=== PATIENT | female | born 1955 | race Caucasian/White ===

== ENCOUNTER 2023-09-09 08:23 | Emergency (ER) | payer MEDICARE, SELFPAY ==
[2023-09-09 08:38] VITALS: BP 135/73; PULSE 68; RESP 16; TEMP 36.8; O2SAT 99; BMI 28.0
--- NOTE | 2023-09-09 09:00 | ED.NECK ---
HPI - Neck Pain/Injury General Chief Complaint: Neck Pain/Injury Stated Complaint: Neck Pain S/P Injury 09/07/23 Time Seen by Provider: 09/09/23 08:43 History of Present Illness HPI Narrative: Patient is a 68-year-old female presents today with having neck pain on the left side. There is no fever no chills. There is no focal weakness. Pain is worse with turning her head to the left. There is less pain on turning her head to the right. No pain on moving her head up and down. There was no weakness on with her head up and down. Patient is from home. No bowel urinary incontinence no difficulty ambulating. Related Data Previous Rx's Medication Instructions Recorded cyclobenzaprine 10 mg tablet 10 mg PO TID PRN pain #14 tabs 09/09/23 ibuprofen 400 mg tablet 400 mg PO Q6H PRN pain #20 tabs 09/09/23 Allergies Allergy/AdvReac Type Severity Reaction Status Date / Time vagisil Allergy Unknown rash Uncoded 08/20/18 00:00 Review of Systems Review of Systems: Positive neck pain Yes all other systems are reviewed and are negative [facility] Past Medical History Attestation statement: The following information was validated with the patient. Physical Exam Vital Signs: Vital Signs: Last Vital Signs Temp 98.2 F 09/09/23 08:38 Pulse 68 09/09/23 08:38 Resp 16 09/09/23 08:38 BP 135/73 09/09/23 08:38 Pulse Ox 99 09/09/23 08:38 O2 Del Method Room Air 09/09/23 08:38 BMI result Body Mass Index 28.0 Appearance: Alert. Oriented X3. No acute distress. Eyes: Pupils equal, round and reactive to light. ENT: Pharynx normal. Neck: Normal inspection. Neck supple. No lymph nodes noted. No crepitus. There is positive pain to the left trapezius muscle on palpation. Pain on movement of the neck to the left. Minimal pain on movement of the neck to the right. Movement up and down without any difficulty. CVS: Normal heart rate and rhythm. Pulses normal. Normal S1 and S2 Respiratory: No respiratory distress. Breath sounds normal. No Wheezing. No rales Abdomen: Soft and nontender. No rigidity. No distention. good BS x4 Skin: Skin warm and dry. Normal skin color. Normal skin turgor. Extremities: No lower extremity edema. Neurovascular intact to all extremities. No Lacerations. No Rash. Good strength in bilateral upper extremity. No pain on movement of the arms. Sensation intact pulses intact Neuro: Oriented X 3. No motor deficit. No sensory deficit. Moving all extermities. No slurred speech Medical Decision Making Medical Decision Making MDM Narrative: No evidence for meningitis. Patient's has no focal weakness to suggest cord compression. Neurologically intact. Pain fairly sudden in onset worse with movement to a certain direction. Will start patient on muscle relaxant and also NSAIDs. Patient stated her kidney function is normal. Will discharge patient home currently in stable condition. Differential Diagnosis Toward a callus, fracture, cord compression Admission/Observation Consideration of admission/observation: Escalation of care including admission/observation considered Seems well appearing neurologically intact no need for admission Independent Historian Clinical information obtained from an independent historian. History obtained from or confirmed by: Spouse Prescription Management I considered prescription management with: Pain Medication Muscle relaxant Discharge Plan Discharge Clinical Impression: Torticollis Patient Disposition: Home, Self-Care Instructions: Spasmodic Torticollis (ED) Prescriptions: New cyclobenzaprine 10 mg tablet 10 mg PO TID PRN (Reason: pain) Qty: 14 0RF ibuprofen 400 mg tablet 400 mg PO Q6H PRN (Reason: pain) Qty: 20 0RF Referrals: Jose Christiansen MD [Primary Care Provider] - 09/11/23
== END 2023-09-09 10:11 | disposition home or self-care (01) ==
PROVIDERS: Emergency Provider Emergency Medicine Emergency Medical Services; PCP Internal Medicine
DX: M43.6 Torticollis (principal)
CPT/HCPCS: 99283; 99284

== ENCOUNTER 2024-02-10 08:19 | Outpatient (AMB) | payer MEDICARE, SELFPAY ==
[2024-02-10 08:32] VITALS: BP 140/80; PULSE 89; TEMP 36.4; O2SAT 97; BMI 29.3
--- NOTE | 2024-02-10 08:32 | AM.OFFWIN_ITS ---
Intake Vital Signs 02/10/24 08:32 Height 5 ft 1 in Weight 155 lb BMI 29.3 BP 140/80 H Blood Pressure Location Lt brachial Position Sitting Pulse 89 Pulse Source Pulse Oximeter Temp 97.5 F Temp Source Temporal Artery Scan Pulse Oximetry (%) 97 Oxygen Delivery Method Room Air Intake Visit Reasons: EP ?Sinus infection Intake Note: pt is here today for sinus infection started 1 week ago Patient Tobacco Use Status: Never used Tobacco Allergies vagisil Allergy (Unknown, Uncoded 08/20/18 00:00) rash Do you need a note to return to daycare/school/sports/work: No HPI HPI Comments History of Present Illness Details 68 y/o female patient who presents to [facility] in clinic with c/o Sinus pressure and headaches. Reports that symptoms started 1 week ago. Prior H/o Sinus Surgery. [facility] Social History Unable to assess alcohol history related to: Unknown Patient Tobacco Use Status: Never used Tobacco Review of Systems Const All systems reviewed & are unremarkable except as noted in HPI and below Physical Exam Vital Signs: Last Vital Signs Temp 97.5 F 02/10/24 08:32 Pulse 89 02/10/24 08:32 BP 140/80 H 02/10/24 08:32 Pulse Ox 97 02/10/24 08:32 Oxygen Delivery Method Room Air 02/10/24 08:32 BMI result Body Mass Index 29.3 Const General: comfortable and no acute distress Orientation/consciousness: patient oriented x3 HEENT Head: Yes normocephalic Ears: external ears normal and TM's normal bilaterally General nose exam: Abnormal mucous membranes and turbinates present boggy and erythematous and Nasal discharge present Face and sinus: Yes sinus tenderness Mouth: moist mucous membranes Throat: Yes posterior oropharynx normal Resp Effort & Inspection: normal respiratory effort, able to speak in complete sentences and no cough Auscultation: clear to auscultation bilaterally, no crackles, no rales, no rhonchi and no wheezes Cardio Rate: regular rate Rhythm: regular rhythm Neuro General: patient oriented x3 Assessment & Plan Assessment & Plan (1) Upper respiratory infection: Code(s): J06.9 - Acute upper respiratory infection, unspecified Qualifiers: URI type: acute nasopharyngitis (common cold) Qualified Code(s): J00 - Acute nasopharyngitis [common cold] Plan: - OTC cold/sinus remedies. - Acetaminophen for pain relief Orders: Orders SARS-CoV2/FLU/RSV Today J00 - Acute nasopharyngitis [common cold] Medications: New azithromycin 500 mg PO DAILY 3 tabs 0RF 3 days J00 - Acute nasopharyngitis [common cold] Coding Level of Care Code Est Pt Level 3 (42874) Diagnoses Acute nasopharyngitis J00 URI type: acute nasopharyngitis (common cold) Time Spent (min) 15
== END 2024-02-10 09:15 | disposition home or self-care (01) ==
PROVIDERS: PCP Internal Medicine; Visit Provider Nurse Practitioner Family
DX: J00 Acute nasopharyngitis [common cold] (principal)
CPT/HCPCS: 99213

== ENCOUNTER 2024-02-10 08:56 | Outpatient (REF) | payer MEDICARE, SELFPAY ==
[2024-02-10 13:08] LABS: Influenza A PCR NEGATIVE (Negative); Influenza B PCR NEGATIVE (Negative); Resp Syncy Virus RNA Qual PCR NEGATIVE (Negative); SARS COV2 PCR INHOUSE NEGATIVE (Negative)
== END 2024-02-10 08:57 | disposition home or self-care (01) ==
LOC: HO.LAB 08:56
PROVIDERS: Visit Provider Nurse Practitioner Family
DX: Z11.52 Encounter for screening for COVID-19 (principal); Z20.822 Contact with and (suspected) exposure to COVID-19; J00 Acute nasopharyngitis [common cold]
CPT/HCPCS: 0241U

== ENCOUNTER 2024-12-22 11:02 | Emergency (ER) | payer MEDICARE, SELFPAY ==
--- NOTE | ~2024-12-22 | CT_ITS ---
EXAMINATION: CT HEAD AND FACIAL BONES WITHOUT CONTRAST CLINICAL INFORMATION: Trauma. Fall on prior Thursday, dizziness and nausea. COMPARISON: None TECHNIQUE: Contiguous axial imaging was performed from the skull base to vertex, as well as spiral CT imaging of the maxillofacial bones without intravenous administration of contrast. Sagittal, coronal, and thin section axial reformatted images were constructed from the axial data set. This CT examination was performed using dose optimization techniques as appropriate, variously including the following: *Automated exposure control *Adjustment of mA and/or kV according to patient size (this includes techniques or standardized protocols for targeted exams where dose is matched to indication/reason for exam; i.e. extremities or head) *Use of iterative reconstruction technique FINDINGS: There is no evidence of intracranial hemorrhage or extra-axial fluid collection. There is no mass effect, or edema. No CT evidence of acute territorial infarct. Ventricles, sulci, and cisterns are normal in size and configuration for patient age. No hydrocephalus. No midline shift. Mild supratentorial deep white matter hypodensities in keeping with mild small vessel ischemic changes. 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 Partial empty sella noted. Mild atheromatous calcification of the bilateral carotid siphons and V4 segments vertebral arteries bilaterally. Globes and orbital contents demonstrate bilateral lens replacements. Normal-appearing postseptal structures. Extracranial soft tissues demonstrate left inferior frontal scalp soft tissue swelling with a small hematoma. The paranasal sinuses, mastoid air cells, and tympanic cavities are normally aerated. No suspicious bony abnormalities. No calvarial fracture. Orbits appear intact. No fractures. Remainder of maxillofacial bones and mandible are intact without acute fracture. TM joints are normally oriented. Probable old nasal bone fractures. Imaged cervical spine to the level of C6 is intact without fracture. CT/CT facial bones wo IV con IMPRESSION: 1. No acute intracranial abnormality. 2. No acute calvarial abnormality of maxillofacial fractures seen. 3. Inferior left frontal scalp soft tissue swelling with small hematoma. Electronically signed by: Bob Monreal MD 12/22/2024 12:59 PM [facility] [place]
[2024-12-22 12:08] VITALS: BP 144/66; PULSE 72; RESP 16; TEMP 36.7; O2SAT 97; BMI 24.9
--- NOTE | 2024-12-22 12:09 | ED.GENADULT ---
HPI - General Adult General Chief complaint: Head Injury Stated complaint: fall facial injuries Time Seen by Provider: 12/22/24 13:21 Source: patient, family, RN notes reviewed and old records reviewed Mode of arrival: ambulatory Limitations: no limitations History of Present Illness ED Provider: Keith ORR narrative: 69-year-old female presents for evaluation of facial bruising after a fall Patient reports that she was walking the sidewalk on Thursday, 4 days ago She has fell face 1st and has had bruising around her eyes ever since. She is not anticoagulated. She denies any headache or neck pain She had some nauseous morning but denies blurry vision No other complaints or concerns. Related Data Previous Rx's ?Medication ?Instructions ?Recorded azithromycin 500 mg tablet 500 mg PO DAILY 3 days #3 tabs 02/10/24 Allergies Allergy/AdvReac Type Severity Reaction Status Date / Time vagisil Allergy Unknown rash Uncoded 12/22/24 12:09 Review of Systems Constitutional: Constitutional: Denies body ache(s), Denies chills, Denies fever(s) and Denies frequent falls Eyes: Eyes: Denies blurry vision, Denies exophthalmos and Denies diplopia ENT: Denies vertigo and Denies dizziness Cardiovascular: Cardiovascular: Denies chest pain Respiratory: Respiratory: Denies cough Gastrointestinal: Gastrointestinal: Denies abdominal pain, Denies nausea and Denies vomiting Musculoskeletal: Musculoskeletal: Denies back pain Integumentary/Breasts: Skin/Breast: Denies rash Neurologic: Denies vertigo, Denies dizziness and Denies frequent falls PMFSH Social History Social History Unable to assess alcohol history related to: Unknown Patient Tobacco Use Status: Never used Tobacco Advance Directives: No Advance Directives Information Provided: Yes Do you have a plan to hurt others: No Plan Physical Exam ED Vital Signs: Vital Signs - 24 hr 12/22/24 12:08 Temperature 98.1 F Pulse Rate 72 Respiratory Rate 16 Blood Pressure 144/66 H Pulse Oximetry 97 Oxygen Delivery Method Room Air BMI result Body Mass Index 24.9 Const General: healthy appearing, comfortable, no acute distress, alert and awake Nutritional Appearance: well nourished Orientation/consciousness: patient oriented x3 HENMT Other: Bilateral periorbital ecchymosis extending super morbidly on the left. No significant tenderness. No step-offs or deformities around the orbits or nasal bone. Eyes Eyelids: Yes eyelids normal Conjunctivae: conjunctivae normal Sclerae: sclerae normal Corneas: corneas normal Pupils: Equal, round and reactive pupils present EOM: EOMs intact bilaterally Neck Neck: Yes full ROM Resp Effort & Inspection: normal respiratory effort, able to speak in complete sentences and not labored Cardio Rate: regular rate Rhythm: regular rhythm Skin General skin exam: elasticity normal Neuro General: patient oriented x3 Cranial nerves: Yes CN's II-XII intact bilaterally, Yes Equal, round and reactive pupils present and Yes Bilaterally intact EOM present Cognition (Neuro): normal cognition Extrem Other: Moving all extremities well without any obvious deformities Course Course Course Narrative: RME, this is a rapid medical exam performed by James Parker please refer to primary provider for complete H&P- 69-year-old female presents for evaluation of facial injury and nausea. Patient reports that 4 days ago on Thursday she slipped on ice while she was walking the sidewalk. She struck her face on the ground but did not lose consciousness. She has mild soreness around her eyes with bruising. She is not anticoagulated. She had some nausea yesterday and is what prompted her ER visit today. She has no chest pain, shortness of breath, palpitations, no neck pain or C-spine tenderness. Plan for CT scan of the brain and facial bones Medical Decision Making Medical Decision Making MDM Narrative: 69-year-old female presents for evaluation of facial presenting after a fall. She has no neck pain or C-spine tenderness in the fall happened 4 days ago, we will get a CT scan of the brain and facial bones given the significant ecchymosis. The patient has no neuro deficits at this time Differential Diagnosis Differential Diagnoses: The differential diagnosis associated with the presentation includes Contusion Hematoma Facial fracture Concussion Intracranial hemorrhage Independent Interpretation I performed an independent interpretation of an: CT Scan Interpretation: Agree with Radiology interpretation, no intracranial hemorrhage or cervical fracture Radiology Impression Discussion of test interpretation with radiology: I have reviewed the radiologist's reading. Radiologist Impression: FINDINGS: There is no evidence of intracranial hemorrhage or extra-axial fluid collection. There is no mass effect, or edema. No CT evidence of acute territorial infarct. Ventricles, sulci, and cisterns are normal in size and configuration for patient age. No hydrocephalus. No midline shift. Mild supratentorial deep white matter hypodensities in keeping with mild small vessel ischemic changes. 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 Partial empty sella noted. Mild atheromatous calcification of the bilateral carotid siphons and V4 segments vertebral arteries bilaterally. Globes and orbital contents demonstrate bilateral lens replacements. Normal-appearing postseptal structures. Extracranial soft tissues demonstrate left inferior frontal scalp soft tissue swelling with a small hematoma. The paranasal sinuses, mastoid air cells, and tympanic cavities are normally aerated. No suspicious bony abnormalities. No calvarial fracture. Orbits appear intact. No fractures. Remainder of maxillofacial bones and mandible are intact without acute fracture. TM joints are normally oriented. Probable old nasal bone fractures. Imaged cervical spine to the level of C6 is intact without fracture. CT/CT head/brain wo IV con IMPRESSION: 1. No acute intracranial abnormality. 2. No acute calvarial abnormality of maxillofacial fractures seen. 3. Inferior left frontal scalp soft tissue swelling with small hematoma. Electronically signed by: Bob Monreal MD 12/22/2024 12:59 PM [facility] [place] Discharge Plan Discharge Clinical Impression: Closed head injury, Contusion of face Patient Disposition: Home, Self-Care Instructions: Facial Contusion (ED) Additional Instructions: Your CT scans did not show any evidence of significant injury. You have a small hematoma/contusion to the left side of your face in the area of bruising You did not have any facial fractures or injury to your brain You may use ibuprofen or Tylenol for pain Follow-up with your primary doctor, return for new or worsening symptoms Prescriptions: No Action azithromycin 500 mg tablet 500 mg PO DAILY 3 Days Qty: 3 0RF Discharge Date/Time: 12/22/24 13:49 Print Language: Luxembourgish
== END 2024-12-22 13:49 | disposition home or self-care (01) ==
PROVIDERS: Emergency Provider Emergency Medicine; PCP Internal Medicine
DX: S09.90XA Unspecified injury of head, initial encounter (principal); S00.83XA Contusion of other part of head, initial encounter; W18.30XA Fall on same level, unspecified, initial encounter; Y93.9 Activity, unspecified; Y92.9 Unspecified place or not applicable; Y99.9 Unspecified external cause status
CPT/HCPCS: 70450; 70486; 99281; 99284

== ENCOUNTER → 2024-12-22 12:10 | Outpatient (BNV) | payer MEDICARE, SELFPAY | PROVIDERS: Emergency Provider Emergency Medicine; PCP Internal Medicine; Visit Provider Radiology Diagnostic Radiology | DX: R22.0 Localized swelling, mass and lump, head (principal) | CPT/HCPCS: 70450; 70486 ==